=== PATIENT | female | born 1965 | race African-American/Black ===

== ENCOUNTER 2023-04-14 05:17 | Emergency (ER) | payer OTHER ==
[~2023-04-14] VITALS: Ht 162.6 cm; Wt 59.1 kg
[2023-04-14 05:33] VITALS: TEMP 98.4
[2023-04-14] MEDS ORDERED: MORPHINE SULFATE 2 MG/ML SYRINGE IVP ONE ×2 (06:15→08:15)
[2023-04-14 06:33] LABS: BASOPHILS % (AUTO) 1.3 % (0.0-2.0); EOSINOPHILS % (AUTO) 0.6 % (1.0-6.0); HEMATOCRIT 35.9 % (36-46); HEMOGLOBIN 12.3 g/dL (12.0-16.0); LYMPHOCYTES # (AUTO) 1.7 K/uL (1.0-4.8); LYMPHOCYTES % (AUTO) 29.7 % (22.0-44.0); MEAN CORPUSCULAR HEMOGLOBIN 35.3 pg (26.0-34.0); MEAN CORPUSCULAR HGB CONC 34.3 G/dL (31.0-37.0); MEAN CORPUSCULAR VOLUME 103 fL (80-100); MONOCYTES # (AUTO) 0.8 K/uL (0.1-1.0); MONOCYTES % (AUTO) 13.6 % (2.0-9.0); NEUTROPHILS # (AUTO) 3.1 K/uL (1.8-7.7); NEUTROPHILS % (AUTO) 54.8 % (40.0-70.0); PLATELET COUNT (AUTO) 132 K/uL (150-450); RED BLOOD CELL COUNT(AUTO) 3.49 MIL/uL (4.00-5.20); RED CELL DISTRIBUTION WIDTH 17.8 % (11.5-14.5)
[2023-04-14 06:48] LABS: ANION GAP 8 mmol/L (8-16); CALCIUM, TOTAL 8.4 mg/dL (8.8-10.5); CARBON DIOXIDE 27 mmol/L (22-29); CHLORIDE 104 mmol/L (98-107); CREATININE 0.85 mg/dL (0.60-1.30); GLOMERULAR FILTR. RATE CALC > 60 mL/min (>60); GLUCOSE,RANDOM 89 mg/dL (70-110); POTASSIUM 3.1 mmol/L (3.5-5.1); SODIUM SERUM 139 mmol/L (136-145)
[2023-04-14 06:53] LABS: ALANINE AMINOTRANSFERASE 26 U/L (12-78); ALBUMIN 2.5 g/dL (3.4-5.0); ALKALINE PHOSPHATASE 92 U/L (46-116); ASPARTATE AMINOTRANSFERASE 56 U/L (15-37); BILIRUBIN,TOTAL 1.6 mg/dL (0.1-1.0); LIPASE 279 U/L (73-393); TOTAL PROTEIN, SERUM 8.1 g/dL (6.4-8.2)
[2023-04-14 07:10] LABS: APPEARANCE,URINE CLEAR (CLEAR); BILIRUBIN,URINE NEGATIVE (NEGATIVE); GLUCOSE, URINE (UA) NEGATIVE (NEGATIVE); KETONES,URINE NEGATIVE (NEGATIVE); LEUKOCYTE ESTERASE ,URINE NEGATIVE (NEGATIVE); NITRATE,URINE NEGATIVE (NEGATIVE); OCCULT BLOOD,URINE NEGATIVE (NEGATIVE); PROTEIN,URINE NEGATIVE (NEGATIVE); SPECIFIC GRAVITIY, URINE 1.009 (1.003-1.030); UROBILINOGEN,URINE <=1.0 mg/dL (<=1.0)
[2023-04-14] MEDS ORDERED: ACET-3385 PO (08:15)
[2023-04-14 08:30] VITALS: BP 120/77; PULSE 93; RESP 18
== END 2023-04-14 09:03 | disposition home or self-care (01) ==
LOC: MERGE 05:19 → EMS 05:19
DX: R10.32 Left lower quadrant pain (principal); I11.0 Hypertensive heart disease with heart failure; I50.9 Heart failure, unspecified; J44.9 Chronic obstructive pulmonary disease, unspecified; K92.2 Gastrointestinal hemorrhage, unspecified; K74.60 Unspecified cirrhosis of liver; D69.6 Thrombocytopenia, unspecified; F17.210 Nicotine dependence, cigarettes, uncomplicated
CPT/HCPCS: 99285; 74176; 96374; 80053; 81003; 83690; 85025; 36415; 96376; J2270

== ENCOUNTER 2023-04-20 13:14 | Inpatient (IN) | payer MEDICAID, OTHER ==
[~2023-04-20] VITALS: Ht 162.6 cm; Wt 56.6 kg
[~2023-04-20 13:14] MED LIST: ACET-3385 PO
[2023-04-20 15:12] LABS: COVID AG,FIA SOURCE NASOPHARYNGEAL
[2023-04-20] MEDS ORDERED: BARIUM SULFATE 0.1% SUSPENSION 450 ML BOTTLE PO ONE (15:30)
[2023-04-20 20:10] LABS: LYMPHOCYTES # (AUTO) 0.7 K/uL (1.0-4.8); MONOCYTES # (AUTO) 0.5 K/uL (0.1-1.0); PLATELET COUNT (AUTO) 105 K/uL (150-450)
[2023-04-20 20:13] LABS: EOSINOPHILS % (AUTO) 0 % (1.0-6.0); HEMATOCRIT 28.8 % (36-46); HEMOGLOBIN 9.9 g/dL (12.0-16.0); LYMPHOCYTES % (AUTO) 7.9 % (22.0-44.0); MEAN CORPUSCULAR HEMOGLOBIN 35.1 pg (26.0-34.0); MEAN CORPUSCULAR HGB CONC 34.3 G/dL (31.0-37.0); MEAN CORPUSCULAR VOLUME 103 fL (80-100); MONOCYTES % (AUTO) 6.2 % (2.0-9.0); NEUTROPHILS # (AUTO) 7.1 K/uL (1.8-7.7); NEUTROPHILS % (AUTO) 84.9 % (40.0-70.0); RED BLOOD CELL COUNT(AUTO) 2.81 MIL/uL (4.00-5.20); RED CELL DISTRIBUTION WIDTH 17.2 % (11.5-14.5)
[2023-04-20 20:22] LABS: INR 1.4 (0.9-1.1)
[2023-04-20 20:27] LABS: LACTIC ACID 0.9 mmol/L (0.4-2.0)
[2023-04-20 20:29] LABS: AMMONIA 27 umol/L (11-32)
[2023-04-20 20:33] LABS: B-TYPE NATRIURETIC PEPTIDE 584 pg/mL (0-100)
[2023-04-20 20:34] LABS: ALANINE AMINOTRANSFERASE 21 U/L (12-78); ALBUMIN 2.5 g/dL (3.4-5.0); ALKALINE PHOSPHATASE 91 U/L (46-116); ANION GAP 12 mmol/L (8-16); ASPARTATE AMINOTRANSFERASE 51 U/L (15-37); BILIRUBIN,TOTAL 1.6 mg/dL (0.1-1.0); CALCIUM, TOTAL 8.1 mg/dL (8.8-10.5); CARBON DIOXIDE 22 mmol/L (22-29); CHLORIDE 94 mmol/L (98-107); CREATININE 0.67 mg/dL (0.60-1.30); GLOMERULAR FILTR. RATE CALC > 60 mL/min (>60); GLUCOSE,RANDOM 87 mg/dL (70-110); LIPASE 285 U/L (73-393); SODIUM SERUM 128 mmol/L (136-145); TOTAL PROTEIN, SERUM 7.7 g/dL (6.4-8.2)
[2023-04-20 20:38] LABS: POTASSIUM 2.8 mmol/L (3.5-5.1)
[2023-04-20] MEDS ORDERED: PIPERACILLIN/TAZO 3.375 GM/D5W 50 ML IV ONE ×2 (21:00→21:45)
[2023-04-20] MEDS ORDERED: POTASSIUM CHLORIDE 10% 40 MEQ/30 ML LIQUID UDCUP PO ONE ×2 (21:15→21:45)
[2023-04-20 21:55] LABS: APPEARANCE,URINE CLEAR (CLEAR); BILIRUBIN,URINE NEGATIVE (NEGATIVE); GLUCOSE, URINE (UA) NEGATIVE (NEGATIVE); KETONES,URINE NEGATIVE (NEGATIVE); LEUKOCYTE ESTERASE ,URINE NEGATIVE (NEGATIVE); NITRATE,URINE NEGATIVE (NEGATIVE); OCCULT BLOOD,URINE NEGATIVE (NEGATIVE); PH,URINE 6.5 (5.0-8.0); PROTEIN,URINE NEGATIVE (NEGATIVE); SPECIFIC GRAVITIY, URINE 1.004 (1.003-1.030); UROBILINOGEN,URINE <=1.0 mg/dL (<=1.0)
[2023-04-20] MEDS ORDERED: POTASSIUM CHL 10 MEQ/WATER 50 ML IV PRN (22:00)
[2023-04-20] MEDS ORDERED: MAGNESIUM SULFATE 2 GM/WATER 50 ML IV PRN (22:00)
[2023-04-20] MEDS ORDERED: POTASSIUM CHLORIDE 20 MEQ ER TABLET PO PRN (22:00)
[2023-04-20] MEDS ORDERED: ONDANSETRON HCL 4 MG/2 ML VIAL IVP PRN (22:00)
[2023-04-20] MEDS ORDERED: MAGNESIUM SULFATE 4 GM/WATER 100 ML IV PRN (22:00)
[2023-04-20 22:03] LABS: AMPHET/METH SCREEN,URINE POSITIVE (NEGATIVE); BARBITURATE SCREEN, URINE NEGATIVE (NEGATIVE); BENZODIAZEPINES SCREEN,URINE NEGATIVE (NEGATIVE); CANNABINOID SCREEN,URINE NEGATIVE (NEGATIVE); COCAINE SCREEN,URINE NEGATIVE (NEGATIVE); METHADONE SCREEN, URINE NEGATIVE (NEGATIVE); OPIATE SCREEN,URINE NEGATIVE (NEGATIVE); PHENCYCLIDINE SCREEN,URINE NEGATIVE (NEGATIVE)
[2023-04-20 22:34] VITALS: BP 123/72; PULSE 97; RESP 18; TEMP 98.6
[2023-04-20 22:40] LABS: BACTERIA,URINE None Seen /HPF (None Seen); RBC,URINE None Seen /HPF (0-2); WBC,URINE None Seen /HPF (0-5)
[2023-04-20] MEDS ORDERED: MAGNESIUM SULFATE 2 GM/WATER 50 ML IV ONE (23:00)
[2023-04-20] MEDS ORDERED: POTASSIUM CHLORIDE 40 MEQ in SODIUM CHLORIDE 0.45% 1,000 ML IV ONE (23:00)
[2023-04-20] MEDS ORDERED: SODIUM CHLORIDE 0.9% 250 ML IV ONE (23:18)
[2023-04-20] MEDS: MORPHINE SULFATE 2 MG/ML SYRINGE IVP PRN (23:22)
[2023-04-21] VITALS (7 sets, daily range): BP systolic 112–135; BP diastolic 60–72; PULSE 96–134; RESP 15–19; TEMP 98–100.8
[2023-04-21] MEDS: MORPHINE SULFATE 2 MG/ML SYRINGE IVP PRN ×3 (05:20→21:58)
[2023-04-21 05:48] LABS: BASOPHILS % (AUTO) 0.6 % (0.0-2.0); EOSINOPHILS % (AUTO) 0.1 % (1.0-6.0); HEMATOCRIT 28.1 % (36-46); HEMOGLOBIN 9.8 g/dL (12.0-16.0); LYMPHOCYTES # (AUTO) 1.2 K/uL (1.0-4.8); LYMPHOCYTES % (AUTO) 14.5 % (22.0-44.0); MEAN CORPUSCULAR HEMOGLOBIN 35.5 pg (26.0-34.0); MEAN CORPUSCULAR HGB CONC 34.7 G/dL (31.0-37.0); MEAN CORPUSCULAR VOLUME 102 fL (80-100); MONOCYTES # (AUTO) 0.5 K/uL (0.1-1.0); MONOCYTES % (AUTO) 6.9 % (2.0-9.0); NEUTROPHILS # (AUTO) 6.2 K/uL (1.8-7.7); NEUTROPHILS % (AUTO) 77.9 % (40.0-70.0); PLATELET COUNT (AUTO) 120 K/uL (150-450); RED BLOOD CELL COUNT(AUTO) 2.75 MIL/uL (4.00-5.20); RED CELL DISTRIBUTION WIDTH 17.6 % (11.5-14.5)
[2023-04-21 05:58] LABS: ANION GAP 13 mmol/L (8-16); CALCIUM, TOTAL 7.6 mg/dL (8.8-10.5); CARBON DIOXIDE 22 mmol/L (22-29); CHLORIDE 98 mmol/L (98-107); CREATININE 0.66 mg/dL (0.60-1.30); GLOMERULAR FILTR. RATE CALC > 60 mL/min (>60); GLUCOSE,RANDOM 77 mg/dL (70-110); SODIUM SERUM 133 mmol/L (136-145)
[2023-04-21 06:01] LABS: POTASSIUM 2.9 mmol/L (3.5-5.1)
[2023-04-21] MEDS ORDERED: LORazepam 2 MG TABLET PO PRN (06:45)
[2023-04-21] MEDS ORDERED: POTASSIUM CHLORIDE 20 MEQ ER TABLET PO PRN (07:00)
[2023-04-21] MEDS ORDERED: POTASSIUM CHL 10 MEQ/WATER 50 ML IV PRN (07:00)
[2023-04-21] MEDS ORDERED: 1: MAGNESIUM SULFATE 2 GM, MVI, ADULT NO.1 WITH VIT K 10 ML, THIAMINE 100 MG, FOLIC ACID IV SCH ×5 (07:00)
[2023-04-21] MEDS: MAGNESIUM OXIDE 400 MG TABLET PO PRN (09:29)
[2023-04-21] MEDS: LOPERAMIDE HCL 2 MG CAPSULE PO PRN (09:29)
[2023-04-21] MEDS ORDERED: MAGNESIUM OXIDE 400 MG TABLET PO PRN (11:30)
[2023-04-21] MEDS ORDERED: MAGNESIUM SULFATE 4 GM/WATER 100 ML IV PRN (11:30)
[2023-04-21] MEDS ORDERED: MAGNESIUM SULFATE 2 GM/WATER 50 ML IV PRN (11:30)
[2023-04-21 12:05] LABS: ALBUMIN 2.2 g/dL (3.4-5.0); MAGNESIUM 1.4 mg/dL (1.80-2.40)
[2023-04-22 00:21] VITALS: BP 124/68; PULSE 113; RESP 19; TEMP 98.7
[2023-04-22] MEDS: MORPHINE SULFATE 2 MG/ML SYRINGE IVP PRN ×2 (03:15→08:30)
[2023-04-22 04:56] VITALS: BP 118/72; PULSE 115; RESP 17; TEMP 99.5
[2023-04-22 06:50] LABS: HEMATOCRIT 29.9 % (36-46); HEMOGLOBIN 10.4 g/dL (12.0-16.0); MEAN CORPUSCULAR HEMOGLOBIN 35.6 pg (26.0-34.0); MEAN CORPUSCULAR HGB CONC 34.7 G/dL (31.0-37.0); MEAN CORPUSCULAR VOLUME 103 fL (80-100); PLATELET COUNT (AUTO) 132 K/uL (150-450); RED BLOOD CELL COUNT(AUTO) 2.91 MIL/uL (4.00-5.20); RED CELL DISTRIBUTION WIDTH 17.4 % (11.5-14.5)
[2023-04-22 06:51] LABS: ANION GAP 8 mmol/L (8-16); CALCIUM, TOTAL 7.7 mg/dL (8.8-10.5); CARBON DIOXIDE 21 mmol/L (22-29); CHLORIDE 99 mmol/L (98-107); CREATININE 0.64 mg/dL (0.60-1.30); GLOMERULAR FILTR. RATE CALC > 60 mL/min (>60); GLUCOSE,RANDOM 128 mg/dL (70-110); POTASSIUM 3.8 mmol/L (3.5-5.1); SODIUM SERUM 128 mmol/L (136-145)
[2023-04-22] MEDS ORDERED: LORazepam 2 MG TABLET PO PRN (07:00)
[2023-04-22 07:46] VITALS: BP 105/67; PULSE 115; RESP 18; TEMP 98.2
[2023-04-22 07:52] LABS: BAND NEUTROPHILS % (MANUAL) 17 % (0-5); LYMPHOCYTES % (MANUAL) 30 % (22-44); MONOCYTES % (MANUAL) 11 % (2-9); SEGMENTED NEUTROPHILS % 42 % (40-70)
[2023-04-22] MEDS: MAGNESIUM OXIDE 400 MG TABLET PO PRN ×2 (08:29→16:00)
[2023-04-22] MEDS: LOPERAMIDE HCL 2 MG CAPSULE PO PRN (08:29)
[2023-04-22] MEDS: LORazepam 2 MG TABLET PO SCH ×4 (08:30→20:51)
[2023-04-22 11:46] VITALS: BP 116/73; PULSE 111; RESP 16; TEMP 99.5
[2023-04-22] MEDS ORDERED: MAGNESIUM SULFATE 2 GM, MVI, ADULT NO.1 WITH VIT K 10 ML, THIAMINE 100 MG, FOLIC ACID 1... IV ONE ×5 (12:15)
[2023-04-22 15:27] VITALS: BP 98/63; PULSE 115; RESP 20; TEMP 98.8
[2023-04-22 20:01] VITALS: BP 107/68; PULSE 113; RESP 15; TEMP 99.8
[2023-04-23] VITALS (7 sets, daily range): BP systolic 88–108; BP diastolic 58–76; PULSE 74–109; RESP 16–24; TEMP 98–99.7
[2023-04-23] MEDS: MAGNESIUM OXIDE 400 MG TABLET PO PRN ×3 (00:05→11:21)
[2023-04-23 07:06] LABS: HEMATOCRIT 38.6 % (36-46); HEMOGLOBIN 13.3 g/dL (12.0-16.0); MEAN CORPUSCULAR HGB CONC 34.5 G/dL (31.0-37.0); MEAN CORPUSCULAR VOLUME 101 fL (80-100); PLATELET COUNT (AUTO) 104 K/uL (150-450); RED BLOOD CELL COUNT(AUTO) 3.81 MIL/uL (4.00-5.20); RED CELL DISTRIBUTION WIDTH 17.3 % (11.5-14.5)
[2023-04-23 07:11] LABS: BAND NEUTROPHILS % (MANUAL) 12 % (0-5); LYMPHOCYTES % (MANUAL) 27 % (22-44); MONOCYTES % (MANUAL) 13 % (2-9); SEGMENTED NEUTROPHILS % 48 % (40-70)
[2023-04-23 07:18] LABS: ANION GAP 7 mmol/L (8-16); CARBON DIOXIDE 25 mmol/L (22-29); CHLORIDE 102 mmol/L (98-107); CREATININE 0.62 mg/dL (0.60-1.30); GLOMERULAR FILTR. RATE CALC > 60 mL/min (>60); GLUCOSE,RANDOM 87 mg/dL (70-110); POTASSIUM 4.8 mmol/L (3.5-5.1); SODIUM SERUM 134 mmol/L (136-145)
[2023-04-23] MEDS: MORPHINE SULFATE 2 MG/ML SYRINGE IVP PRN ×2 (08:54→14:37)
[2023-04-23] MEDS: LORazepam 2 MG TABLET PO SCH ×3 (08:58→16:00)
[2023-04-23] MEDS ORDERED: MAGNESIUM SULFATE 2 GM, MVI, ADULT NO.1 WITH VIT K 10 ML, THIAMINE 100 MG, FOLIC ACID 1... IV SCH ×5 (15:15)
[2023-04-23] MEDS ORDERED: LORazepam 1 MG TABLET PO PRN (17:00)
[2023-04-23] MEDS ORDERED: SODIUM CHLORIDE 0.9% 250 ML IV ONE (17:00)
[2023-04-24 00:48] VITALS: BP 105/74; PULSE 108; RESP 20; TEMP 98.9
[2023-04-24 05:17] VITALS: BP 104/73; PULSE 109; RESP 18; TEMP 99.3
[2023-04-24 06:41] LABS: BASOPHILS % (AUTO) 0.9 % (0.0-2.0); EOSINOPHILS % (AUTO) 1.1 % (1.0-6.0); HEMATOCRIT 29.6 % (36-46); HEMOGLOBIN 10.4 g/dL (12.0-16.0); LYMPHOCYTES # (AUTO) 2.5 K/uL (1.0-4.8); LYMPHOCYTES % (AUTO) 35.7 % (22.0-44.0); MEAN CORPUSCULAR HEMOGLOBIN 35.7 pg (26.0-34.0); MEAN CORPUSCULAR VOLUME 102 fL (80-100); MONOCYTES # (AUTO) 1.3 K/uL (0.1-1.0); MONOCYTES % (AUTO) 18.9 % (2.0-9.0); NEUTROPHILS % (AUTO) 43.4 % (40.0-70.0); PLATELET COUNT (AUTO) 148 K/uL (150-450); RED BLOOD CELL COUNT(AUTO) 2.91 MIL/uL (4.00-5.20); RED CELL DISTRIBUTION WIDTH 17.2 % (11.5-14.5)
[2023-04-24] MEDS ORDERED: LORazepam 1 MG TABLET PO PRN (07:00)
[2023-04-24 07:01] LABS: ANION GAP 9 mmol/L (8-16); CALCIUM, TOTAL 7.7 mg/dL (8.8-10.5); CARBON DIOXIDE 21 mmol/L (22-29); CHLORIDE 102 mmol/L (98-107); CREATININE 0.57 mg/dL (0.60-1.30); GLOMERULAR FILTR. RATE CALC > 60 mL/min (>60); GLUCOSE,RANDOM 92 mg/dL (70-110); POTASSIUM 4.5 mmol/L (3.5-5.1); SODIUM SERUM 132 mmol/L (136-145)
[2023-04-24 08:18] VITALS: BP 109/65; PULSE 104; RESP 18; TEMP 98.9
[2023-04-24] MEDS ORDERED: LORazepam 1 MG TABLET PO SCH (09:00)
[2023-04-24] MEDS ORDERED: MAGNESIUM SULFATE 2 GM, MVI, ADULT NO.1 WITH VIT K 10 ML, THIAMINE 100 MG, FOLIC ACID 1... IV ONE ×5 (12:00)
[2023-04-24] MEDS ORDERED: VANCOMYCIN 1GM/WATER(PEG/NADA) 200 ML IV ONE (13:00)
[2023-04-24] MEDS: ChlordiazePOXIDE HCL 10 MG CAPSULE PO SCH (15:37)
[2023-04-24 15:48] VITALS: BP 109/71; PULSE 96; RESP 18; TEMP 98.4
[2023-04-24] MEDS ORDERED: SODIUM CHLORIDE 0.9% 500 ML IV ONE (19:17)
[2023-04-24 19:26] VITALS: BP 107/79; PULSE 107; RESP 18; TEMP 97.5
[2023-04-24] MEDS: ACETAMINOPHEN 325 MG TABLET PO PRN (19:26)
[2023-04-24] MEDS: VANCOMYCIN HCL 750 MG in DEXTROSE 5%-WATER 250 ML IV SCH (19:48)
[2023-04-25] MEDS: ChlordiazePOXIDE HCL 10 MG CAPSULE PO SCH ×4 (00:04→23:03)
[2023-04-25 03:54] VITALS: BP 102/70; PULSE 106; RESP 18; TEMP 97.6
[2023-04-25] MEDS ORDERED: LORazepam 1 MG TABLET PO PRN (07:00)
[2023-04-25 07:19] LABS: ANION GAP 8 mmol/L (8-16); CALCIUM, TOTAL 8.1 mg/dL (8.8-10.5); CARBON DIOXIDE 23 mmol/L (22-29); CHLORIDE 106 mmol/L (98-107); CREATININE 0.56 mg/dL (0.60-1.30); GLOMERULAR FILTR. RATE CALC > 60 mL/min (>60); GLUCOSE,RANDOM 81 mg/dL (70-110); POTASSIUM 4.5 mmol/L (3.5-5.1); SODIUM SERUM 137 mmol/L (136-145)
[2023-04-25 08:10] VITALS: BP 102/72; PULSE 102; RESP 20; TEMP 97.9
[2023-04-25] MEDS: ACETAMINOPHEN 325 MG TABLET PO PRN ×2 (08:18→18:54)
[2023-04-25] MEDS: VANCOMYCIN HCL 750 MG in DEXTROSE 5%-WATER 250 ML IV SCH ×2 (09:01→19:49)
[2023-04-25 15:38] VITALS: BP 104/76; PULSE 100; RESP 20; TEMP 98.2
[2023-04-25 19:44] VITALS: BP 108/67; PULSE 102; RESP 18; TEMP 98.3
[2023-04-25] MEDS ORDERED: SODIUM CHLORIDE 0.9% 500 ML IV ONE (22:04)
[2023-04-25] MEDS: ZOLPIDEM TARTRATE 5 MG TABLET PO PRN (23:03)
[2023-04-26 05:34] VITALS: BP 102/67; PULSE 104; RESP 18; TEMP 98.3
[2023-04-26 07:23] LABS: ANION GAP 7 mmol/L (8-16); CALCIUM, TOTAL 7.9 mg/dL (8.8-10.5); CARBON DIOXIDE 23 mmol/L (22-29); CHLORIDE 106 mmol/L (98-107); CREATININE 0.47 mg/dL (0.60-1.30); GLOMERULAR FILTR. RATE CALC > 60 mL/min (>60); GLUCOSE,RANDOM 95 mg/dL (70-110); POTASSIUM 4.2 mmol/L (3.5-5.1); SODIUM SERUM 136 mmol/L (136-145); VANCOMYCIN,RANDOM 7.5 mcg/mL (25.0-50.0)
[2023-04-26 07:30] VITALS: BP 123/67; PULSE 74; RESP 20; TEMP 98.6
[2023-04-26] MEDS: ChlordiazePOXIDE HCL 10 MG CAPSULE PO SCH ×3 (08:33→23:11)
[2023-04-26] MEDS: VANCOMYCIN HCL 750 MG in DEXTROSE 5%-WATER 250 ML IV SCH (08:35)
[2023-04-26] MEDS: MORPHINE SULFATE 2 MG/ML SYRINGE IVP PRN ×2 (08:43→13:31)
[2023-04-26] MEDS ORDERED: *CLINICAL-GENTAMICIN DOSING CLINICAL ONE (11:30)
[2023-04-26] MEDS ORDERED: AMPICILLIN SODIUM 2 GM/NS 100 ML IV SCH (13:00)
[2023-04-26] MEDS: CefTRIAXone 1 GM/DEXTROSE 50 ML IV SCH (13:31)
[2023-04-26] MEDS ORDERED: VANCOMYCIN HCL 750 MG in DEXTROSE 5%-WATER 250 ML IV SCH (16:00)
[2023-04-26] MEDS ORDERED: SODIUM CHLORIDE 0.9% 100 ML ONE (17:20)
[2023-04-26] MEDS ORDERED: IOHEXOL 350 MG/ML 100 ML VIAL ONE (17:20)
[2023-04-26 19:30] VITALS: BP 101/71; PULSE 103; RESP 18; TEMP 98.3
[2023-04-26] MEDS: ZOLPIDEM TARTRATE 5 MG TABLET PO PRN (20:33)
[2023-04-27 04:47] VITALS: BP 100/70; PULSE 99; RESP 18; TEMP 97.8
[2023-04-27] MEDS: MORPHINE SULFATE 2 MG/ML SYRINGE IVP PRN ×2 (06:19→11:14)
[2023-04-27 06:50] LABS: BASOPHILS % (AUTO) 1.2 % (0.0-2.0); EOSINOPHILS % (AUTO) 1.4 % (1.0-6.0); HEMATOCRIT 31.5 % (36-46); HEMOGLOBIN 10.4 g/dL (12.0-16.0); LYMPHOCYTES # (AUTO) 2.1 K/uL (1.0-4.8); LYMPHOCYTES % (AUTO) 28.8 % (22.0-44.0); MEAN CORPUSCULAR HEMOGLOBIN 34.1 pg (26.0-34.0); MEAN CORPUSCULAR VOLUME 103 fL (80-100); MONOCYTES % (AUTO) 13.7 % (2.0-9.0); NEUTROPHILS # (AUTO) 3.9 K/uL (1.8-7.7); NEUTROPHILS % (AUTO) 54.9 % (40.0-70.0); PLATELET COUNT (AUTO) 171 K/uL (150-450); RED BLOOD CELL COUNT(AUTO) 3.05 MIL/uL (4.00-5.20); RED CELL DISTRIBUTION WIDTH 17.7 % (11.5-14.5)
[2023-04-27 07:13] LABS: ALANINE AMINOTRANSFERASE 20 U/L (12-78); ALBUMIN 2.1 g/dL (3.4-5.0); ALKALINE PHOSPHATASE 90 U/L (46-116); ANION GAP 7 mmol/L (8-16); ASPARTATE AMINOTRANSFERASE 46 U/L (15-37); BILIRUBIN,TOTAL 0.9 mg/dL (0.1-1.0); CALCIUM, TOTAL 8.1 mg/dL (8.8-10.5); CARBON DIOXIDE 24 mmol/L (22-29); CHLORIDE 105 mmol/L (98-107); CREATININE 0.56 mg/dL (0.60-1.30); GLOMERULAR FILTR. RATE CALC > 60 mL/min (>60); GLUCOSE,RANDOM 135 mg/dL (70-110); POTASSIUM 4.1 mmol/L (3.5-5.1); SODIUM SERUM 136 mmol/L (136-145); TOTAL PROTEIN, SERUM 7.2 g/dL (6.4-8.2)
[2023-04-27 08:00] VITALS: BP 111/80; PULSE 104; RESP 19; TEMP 98.1
[2023-04-27] MEDS: ChlordiazePOXIDE HCL 10 MG CAPSULE PO SCH ×2 (08:01→16:09)
[2023-04-27 12:00] VITALS: BP 100/69; PULSE 119; RESP 20; TEMP 98.2
[2023-04-27] MEDS: CefTRIAXone 1 GM/DEXTROSE 50 ML IV SCH (12:26)
[2023-04-27 20:00] VITALS: BP 103/67; PULSE 107; RESP 20; TEMP 97.9
[2023-04-27] MEDS: ZOLPIDEM TARTRATE 5 MG TABLET PO PRN (21:31)
[2023-04-27] MEDS: ACETAMINOPHEN 325 MG TABLET PO PRN (21:31)
[2023-04-28] MEDS: ChlordiazePOXIDE HCL 10 MG CAPSULE PO SCH ×4 (01:39→23:17)
[2023-04-28 03:51] VITALS: BP 102/71; PULSE 95; RESP 20; TEMP 97.9
[2023-04-28 07:59] VITALS: BP 94/67; PULSE 99; RESP 17; TEMP 97.8
[2023-04-28] MEDS: MORPHINE SULFATE 2 MG/ML SYRINGE IVP PRN ×3 (08:26→20:38)
[2023-04-28] MEDS ORDERED: CHLO10CA7 PO (11:04)
[2023-04-28] MEDS ORDERED: CEFT1VIA65 IV (11:04)
[2023-04-28] MEDS ORDERED: LORA-1000 PO (11:06)
[2023-04-28] MEDS ORDERED: ZOLP-280 PO (11:06)
[2023-04-28] MEDS: CefTRIAXone 1 GM/DEXTROSE 50 ML IV SCH (13:27)
[2023-04-28] MEDS: VANCOMYCIN HCL 750 MG in DEXTROSE 5%-WATER 250 ML IV SCH ×2 (15:55→23:24)
[2023-04-28 15:56] VITALS: BP 100/75; PULSE 117; RESP 20; TEMP 98
[2023-04-28 18:35] VITALS: PULSE 110
[2023-04-28 19:23] VITALS: BP 104/61; PULSE 110; RESP 20; TEMP 97.6
[2023-04-28] MEDS: ACETAMINOPHEN 325 MG TABLET PO PRN ×2 (20:21→20:25)
[2023-04-28] MEDS: ZOLPIDEM TARTRATE 5 MG TABLET PO PRN (21:18)
[2023-04-28] MEDS ORDERED: SODIUM CHLORIDE 0.9% 500 ML IV ONE (23:52)
[2023-04-29] MEDS ORDERED: SODIUM CHLORIDE 0.9% 0 ML IV ONE (00:09)
[2023-04-29 04:16] VITALS: BP 107/69; PULSE 111; RESP 18; TEMP 98.5
[2023-04-29 07:45] VITALS: BP 110/77; PULSE 101; RESP 20; TEMP 97.7
[2023-04-29 07:53] LABS: ANION GAP 8 mmol/L (8-16); CALCIUM, TOTAL 8.1 mg/dL (8.8-10.5); CARBON DIOXIDE 23 mmol/L (22-29); CHLORIDE 106 mmol/L (98-107); CREATININE 0.52 mg/dL (0.60-1.30); GLOMERULAR FILTR. RATE CALC > 60 mL/min (>60); GLUCOSE,RANDOM 116 mg/dL (70-110); POTASSIUM 3.7 mmol/L (3.5-5.1); SODIUM SERUM 137 mmol/L (136-145)
[2023-04-29] MEDS: VANCOMYCIN HCL 750 MG in DEXTROSE 5%-WATER 250 ML IV SCH ×3 (07:59→23:46)
[2023-04-29] MEDS: ChlordiazePOXIDE HCL 10 MG CAPSULE PO SCH ×2 (08:33→20:01)
[2023-04-29] MEDS: ACETAMINOPHEN 325 MG TABLET PO PRN (10:14)
[2023-04-29] MEDS ORDERED: CHLO10CA7 PO (10:38)
[2023-04-29] MEDS: CefTRIAXone 1 GM/DEXTROSE 50 ML IV SCH (12:42)
[2023-04-29] MEDS: ZOLPIDEM TARTRATE 5 MG TABLET PO PRN (20:00)
[2023-04-29] MEDS: MORPHINE SULFATE 2 MG/ML SYRINGE IVP PRN (20:01)
[2023-04-29 20:13] VITALS: BP 105/75; PULSE 111; RESP 18; TEMP 98
[2023-04-30 05:09] VITALS: BP 104/75; PULSE 113; RESP 18; TEMP 98.4
[2023-04-30] MEDS: MORPHINE SULFATE 2 MG/ML SYRINGE IVP PRN (06:01)
[2023-04-30 07:49] LABS: ANION GAP 10 mmol/L (8-16); CARBON DIOXIDE 23 mmol/L (22-29); CHLORIDE 105 mmol/L (98-107); CREATININE 0.51 mg/dL (0.60-1.30); GLOMERULAR FILTR. RATE CALC > 60 mL/min (>60); GLUCOSE,RANDOM 108 mg/dL (70-110); POTASSIUM 3.9 mmol/L (3.5-5.1); SODIUM SERUM 138 mmol/L (136-145); VANCOMYCIN,RANDOM 12.9 mcg/mL (25.0-50.0)
[2023-04-30 07:55] VITALS: BP 103/78; PULSE 107; RESP 20; TEMP 98.5
[2023-04-30] MEDS: ChlordiazePOXIDE HCL 10 MG CAPSULE PO SCH (08:26)
[2023-04-30] MEDS: VANCOMYCIN HCL 750 MG in DEXTROSE 5%-WATER 250 ML IV SCH (09:13)
[2023-04-30] MEDS: CefTRIAXone 1 GM/DEXTROSE 50 ML IV SCH (11:54)
[2023-04-30] MEDS ORDERED: VANCOMYCIN HCL 1 GM in DEXTROSE 5%-WATER 250 ML IV SCH (16:00)
== END 2023-04-30 14:47 | DRG 248 ==
LOC: EMS 14:49 → 6S 22:00 → 5S 22:36 → 6S 04-23 11:45
PROVIDERS: ADMIT Internal Medicine; ATTEND Internal Medicine
DX: A02.0 Salmonella enteritis (principal); E43 Unspecified severe protein-calorie malnutrition; K76.82 Hepatic encephalopathy; E87.1 Hypo-osmolality and hyponatremia; I50.9 Heart failure, unspecified; I11.0 Hypertensive heart disease with heart failure; E87.6 Hypokalemia; Z68.21 Body mass index [BMI] 21.0-21.9, adult; E83.42 Hypomagnesemia; F15.10 Other stimulant abuse, uncomplicated; F10.239 Alcohol dependence with withdrawal, unspecified; K59.00 Constipation, unspecified; F17.210 Nicotine dependence, cigarettes, uncomplicated; J44.9 Chronic obstructive pulmonary disease, unspecified; Z88.6 Allergy status to analgesic agent; Z87.11 Personal history of peptic ulcer disease
CPT/HCPCS: 36245; 36569; 71045; 71046; 71250; 71260; 72193; 74160; 74176; 76705; 76937; 80048; 80053; 80202; 80307; 81001; 82040; 82140; 82271; 83540; 83550; 83605; 83690; 83735; 83880; 84132; 84484; 85025; 85045; 85610; 85730; 86850; 86900; 86901; 87040; 87045; 87077; 87205; 89055; 93005; 93306; 97116; 97162; 97530; 99291; G0378; G0480; J0290; J0696; J2270; J2543; J3370; J3411; J3475; J3480; J3490; J7030; J7040; J7050; J7060; Q9967; 36415-L1; 36415-TC

== ENCOUNTER 2023-06-07 17:50 | Emergency (ER) | payer OTHER ==
[~2023-06-07] VITALS: Ht 162.6 cm; Wt 55.9 kg
[2023-06-07 18:05] VITALS: TEMP 98.5
[2023-06-07 19:49] LABS: BASOPHILS % (AUTO) 0.7 % (0.0-2.0); EOSINOPHILS % (AUTO) 0.5 % (1.0-6.0); HEMATOCRIT 30.7 % (36-46); HEMOGLOBIN 10.1 g/dL (12.0-16.0); LYMPHOCYTES # (AUTO) 1.9 K/uL (1.0-4.8); LYMPHOCYTES % (AUTO) 31.1 % (22.0-44.0); MEAN CORPUSCULAR HEMOGLOBIN 33.3 pg (26.0-34.0); MEAN CORPUSCULAR HGB CONC 32.9 G/dL (31.0-37.0); MEAN CORPUSCULAR VOLUME 101 fL (80-100); MONOCYTES # (AUTO) 0.6 K/uL (0.1-1.0); MONOCYTES % (AUTO) 10.2 % (2.0-9.0); NEUTROPHILS # (AUTO) 3.5 K/uL (1.8-7.7); NEUTROPHILS % (AUTO) 57.5 % (40.0-70.0); PLATELET COUNT (AUTO) 150 K/uL (150-450); RED BLOOD CELL COUNT(AUTO) 3.03 MIL/uL (4.00-5.20); RED CELL DISTRIBUTION WIDTH 17.5 % (11.5-14.5)
[2023-06-07 20:01] LABS: ANION GAP 9 mmol/L (8-16); CALCIUM, TOTAL 8.2 mg/dL (8.8-10.5); CARBON DIOXIDE 22 mmol/L (22-29); CHLORIDE 103 mmol/L (98-107); GLOMERULAR FILTR. RATE CALC > 60 mL/min (>60); GLUCOSE,RANDOM 193 mg/dL (70-110); POTASSIUM 3.8 mmol/L (3.5-5.1); SODIUM SERUM 134 mmol/L (136-145)
[2023-06-07 20:07] LABS: ALANINE AMINOTRANSFERASE 79 U/L (12-78); ALBUMIN 2.6 g/dL (3.4-5.0); ALKALINE PHOSPHATASE 158 U/L (46-116); ASPARTATE AMINOTRANSFERASE 158 U/L (15-37); BILIRUBIN,TOTAL 0.7 mg/dL (0.1-1.0); LIPASE 156 U/L (16-77); TOTAL PROTEIN, SERUM 7.6 g/dL (6.4-8.2)
[2023-06-07 21:37] LABS: APPEARANCE,URINE CLEAR (CLEAR); GLUCOSE, URINE (UA) NEGATIVE (NEGATIVE); KETONES,URINE NEGATIVE (NEGATIVE); LEUKOCYTE ESTERASE ,URINE TRACE (NEGATIVE); NITRATE,URINE NEGATIVE (NEGATIVE); OCCULT BLOOD,URINE NEGATIVE (NEGATIVE); PH,URINE 6.5 (5.0-8.0); PROTEIN,URINE TRACE mg/dL (NEGATIVE); SPECIFIC GRAVITIY, URINE 1.029 (1.003-1.030); UROBILINOGEN,URINE >12.0 mg/dL (<=1.0)
[2023-06-07 21:38] LABS: BILIRUBIN,URINE SMALL (NEGATIVE)
[2023-06-07] MEDS ORDERED: MORPHINE SULFATE 4 MG/ML SYRINGE IM ONE (22:15)
[2023-06-07] MEDS ORDERED: ONDANSETRON HCL 4 MG/2 ML VIAL IM ONE (22:15)
[2023-06-07 22:28] LABS: BACTERIA,URINE None Seen /HPF (None Seen); RBC,URINE 0-2 /HPF (0-2); SQUAMOUS EPITHELIAL CELL,UR Few /LPF (None Seen); WBC,URINE 0-2 /HPF (0-5)
[2023-06-08] MEDS ORDERED: ONDA-104 PO (05:15)
[2023-06-08] MEDS ORDERED: MAG30ORA11 PO (05:15)
[2023-06-08] MEDS ORDERED: TRAM-559 PO (05:15)
[2023-06-08 06:05] VITALS: BP 113/57; PULSE 90; RESP 16
== END 2023-06-08 06:06 | disposition home or self-care (01) ==
LOC: EMS 18:11
DX: R10.32 Left lower quadrant pain (principal); K74.60 Unspecified cirrhosis of liver; F10.20 Alcohol dependence, uncomplicated; J44.9 Chronic obstructive pulmonary disease, unspecified; K76.0 Fatty (change of) liver, not elsewhere classified; I25.10 Atherosclerotic heart disease of native coronary artery without angina pectoris; I11.0 Hypertensive heart disease with heart failure; F17.210 Nicotine dependence, cigarettes, uncomplicated; F15.90 Other stimulant use, unspecified, uncomplicated; Z88.6 Allergy status to analgesic agent; Z87.19 Personal history of other diseases of the digestive system
CPT/HCPCS: 99285; 80053; 81001; 83690; 84484; 85025; 36415; 74176; 96372; J2270; J2405